=== PATIENT | female | born 1960 | race Caucasian/White ===

== ENCOUNTER 2016-12-20 01:01 | Emergency (ER) | payer MEDICARE ==
[~2016-12-20] VITALS: Ht 165.1 cm; Wt 90.9 kg
--- NOTE | ~2016-12-20 | CR72 ---
[facility] A Service of [facility] & [facility] RADIOLOGY TEXT RESULTS PATIENT: VERONICA ROSEN LOCATION: [facility] : 64 UNIT #: [id number] AGE: [address]: Cortney Fulton APRN SEX: F ORDER DR: [id number] [facility] [address] [place], [place] [address] [id number] E MR#: [id number] Acc #: [id number] NAME: VERONICA ROSEN. : 1960 SEX: F STUDY DATE/TIME: 12/20/2016 03:15 UNIT: [facility] ROOM: STUDY DESCRIPTION: CR Chest Single View Portable Attending Physician: Cortney Fulton A.P.R.N. Ordering Physician: Cortney Fulton A.P.R.N. Primary Care Physician: Frantz Meyers M.D. MEDICAL IMAGING REPORT This report is preliminary unless electronic signature is present EXAM Portable chest, 12/20 at 03:15. INDICATIONS Anxiety, cough, chest pain, headache and nausea that started last night at 8 o'clock. FINDINGS AP portable chest compared with 12/24/2015. Lung volumes are low but the lungs are clear. Cardiac and mediastinal contours are normal. No pneumothorax. Patient status post cervical fusion. IMPRESSION Low-volume inspiration, but no active disease. Dictated by... Nabil Rider Jr., M.D. THIS IS AN ELECTRONICALLY VERIFIED REPORT Nabil Rider Jr., M.D. at 12/20/2016 9:17 PM KACIE/amado TD: 12/20/2016 14:59 JOB #: [id number] MEDICAL IMAGING REPORT Page 1 of 1 COPY
--- NOTE | ~2016-12-20 | CT52 ---
[facility] A Service of [facility] RADIOLOGY TEXT RESULTS PATIENT: VERONICA ROSEN LOCATION: [facility] : 64 UNIT #: [id number] AGE: [address]: Cortney Fulton APRN SEX: F ORDER DR: [id number] [facility] [address] [place], [place] [address] [id number] E MR#: [id number] Acc #: [id number] NAME: VERONICA ROSEN. : 1960 SEX: F STUDY DATE/TIME: 12/20/2016 03:56 UNIT: [facility] ROOM: STUDY DESCRIPTION: CT Cervical Spine Wo Cont Attending Physician: Cortney Fulton A.P.R.N. Ordering Physician: Cortney Fulton A.P.R.N. Primary Care Physician: Frantz Meyers M.D. MEDICAL IMAGING REPORT This report is preliminary unless electronic signature is present EXAM Cervical spine CT, 12/20/2016, at 03:56. INDICATIONS Chronic neck pain worse tonight with headache and tingling in the arms. TECHNIQUE Axial images were obtained through the cervical spine without contrast. Multiplanar reformats were obtained. This CT exam was performed with one or more of the following radiation dose reduction techniques: automatic exposure control, adjustment of mA and/or kV according to patient size, and iterative reconstruction. COMPARISON No comparison. FINDINGS Cervical alignment is normal. Patient has fusion with anterior plate and screws at C5, C6 and C7. Patient is fused with posterior hardware at these levels as well. There is some streak artifact from the hardware. No fractures are seen. At C2-3, the disc is normal. There is some mild facet arthropathy. At C3-4, there is mild facet arthropathy. The disc is normal. At C4-5, the disc is normal. No central canal or neural foraminal stenosis identified at any level. IMPRESSION Cervical fusion as above. No fracture or subluxation. No significant central canal or neural foraminal narrowing identified at any level. [facility] A Service of [facility] RADIOLOGY TEXT RESULTS PATIENT: VERONICA ROSEN LOCATION: [facility] : 64 UNIT #: [id number] AGE: [address]: Cortney Fulton APRN SEX: F ORDER DR: Dictated by... Nabil Rider Jr., M.D. THIS IS AN ELECTRONICALLY VERIFIED REPORT Nabil Rider Jr., M.D. at 12/20/2016 9:18 PM KACIE/brayden TD: 12/20/2016 15:10 JOB #: [id number] MEDICAL IMAGING REPORT Page 1 of 1 COPY
--- NOTE | ~2016-12-20 | CT71 ---
[facility] A Service of [facility] RADIOLOGY TEXT RESULTS PATIENT: VERONICA ROSEN LOCATION: [facility] : 64 UNIT #: [id number] AGE: [address]: Cortney Fulton APRN SEX: F ORDER DR: [id number] [facility] [address] [place], [place] [address] [id number] E MR#: [id number] Acc #: [id number] NAME: VERONICA ROSEN. : 1960 SEX: F STUDY DATE/TIME: 12/20/2016 03:53 UNIT: [facility] ROOM: STUDY DESCRIPTION: CT Head Wo Contrast Attending Physician: Cortney Fulton A.P.R.N. Ordering Physician: Cortney Fulton A.P.R.N. Primary Care Physician: Frantz Meyers M.D. MEDICAL IMAGING REPORT This report is preliminary unless electronic signature is present EXAM Head CT, 12/20 at 3:53. INDICATIONS Headache with tingling in the arms and neck pain and anxiety that started today. TECHNIQUE Axial images were obtained from base to vertex without contrast. This CT exam was performed with one or more of the following radiation dose reduction techniques: Automatic exposure control, adjustment of mA and/or kV according to patient size, and iterative reconstruction. COMPARISON Comparison made with 11/10/2014. FINDINGS Ventricular size and configuration are within normal limits. No acute infarct or hemorrhage is seen. There are no masses. There is a mild degree of generalized atrophy. No skull fracture. There is mild bilateral sphenoid sinusitis. IMPRESSION Mild atrophy. The brain is otherwise within normal limits. There is mild bilateral sphenoid sinusitis. Dictated by... Nabil Rider Jr., M.D. THIS IS AN ELECTRONICALLY VERIFIED REPORT Nabil Rider Jr., M.D. at 12/20/2016 9:18 PM RLK/amado [facility] A Service of [facility] RADIOLOGY TEXT RESULTS PATIENT: VERONICA ROSEN [id number] : 64 UNIT #: [id number] AGE: [address]: Cortney Fulton APRN SEX: F ORDER DR: TD: 12/20/2016 15:04 JOB #: [id number] MEDICAL IMAGING REPORT Page 1 of 1 COPY
--- NOTE | ~2016-12-20 | EKG ---
PATIENT: VERONICA ROSEN UNIT #: [id number] Ventricular Rate: 86 BPM Atrial Rate: 86 BPM P-R Interval: 150 ms QRS Duration: 70 ms Q-T Interval: 374 ms QTC Calculation(Bezet): 447 ms P [place]: 70 degrees Calculated R [place]: 21 degrees Calculated T [place]: 63 degrees Diagnosis Line: Normal sinus rhythm Diagnosis Line: Septal infarct , age undetermined Diagnosis Line: Abnormal ECG Diagnosis Line: When compared with ECG of 20-DEC-2016 03:23, Diagnosis Line: (unconfirmed) Diagnosis Line: Previous ECG has undetermined rhythm, needs review Diagnosis Line: Confirmed by MILTON LEE MD ([id number]) on Diagnosis Line: 12/20/2016 8:43:24 AM INTERPRETING MD: ROSA BERMUDEZ
[~2016-12-20 01:01] MED LIST: ADIPEX-P37.5 M1 PO; ALPRAZOLAM PO; AMBIEN10 MG PO; CIPRO PO; DYAZIDE 37.5/251 CAP PO; DYAZIDE 371 CAP 37.5; DYAZIDE 371 CAP 37.5 PO; FAMOTIDINE PO; FIORICET 50-321 EACH PO; FIORICET1 TAB PO; FIORINAL CAPSUL1 CAP PO; FIORINAL/CODEIN1 CA1; FIORINAL/CODEIN1 CA1 PO; FLEXERIL PO; GABAPENTIN600 MG PO; GEODAN PO; GEODON80 MG PO; HYDROCODON-ACE1 EAC4 PO; HYDROCODONE-APA1 T30 PO; K-DUR20 ME1; K-DUR20 ME1 PO; KDUR PO; LEVOTHYROXINE50 MCG PO; LIPITOR20 MG PO; LORTAB 10/500 T1 TAB PO; MEVACOR PO; MS CONTIN15 M1 PO; OMEPRAZOLE40 M1 PO; PERCOCET 10/31 UDTA1 PO; PERCOCET 10/3251 TAB PO; PERCOCET5/325 PO; PHENERGAN PO; PHENERGAN PR; PHENERGAN12.5 MG PO; PHENERGAN12.5 MG/SU RC; PHENERGAN25 M1; PHENERGAN25 M1 PO; PHENERGAN25 M1 PR; PHENERGAN25 MG PO; PHENTERMINE H37.5 M1 PO; PHENTERMINE PO; POTASSIUM CHLO20 ME1 PO; PRILOSEC PO; SIMVASTATIN40 MG PO; TIZANIDINE HCL4 M1 PO; TRIAMTERENE-HC1 EACH PO; TRIAMTERENE/HCT1 TA3 PO; TRIAMTERENE/HCTZ PO; VICODIN PO; VITAMIN D2000 UNIT PO; VITAMIN D50000 UNIT PO; XANAX2 MG PO; ZANAFLEX4 M1 PO; ZOFRAN PO; ZOLOFT PO; ZOLOFT100 MG PO
[2016-12-20 03:59] LABS: URINE SOURCE CLEAN CATCH
[2016-12-20 04:03] LABS: POC - CKMB 2.8 ng/mL (0.0-7.9); POC - TROPONIN <0.05 ng/mL (<=0.05)
[2016-12-20 04:10] LABS: BASOPHIL# 0.1 X10e3 (0-0.3); BASOPHIL% 0.7 % (0-2.5); EOSINOPHIL# 0.2 X10e3 (0-0.7); EOSINOPHIL% 2.9 % (0.0-7.0); HEMATOCRIT 42.7 % (35.0-45.0); HEMOGLOBIN 14.7 gm/dL (12.0-16.0); LYMPHOCYTE# 3.4 X10e3 (1.0-3.5); LYMPHOCYTE% 40.5 % (17.0-45.0); MEAN CELL VOLUME 94.3 FL (83-96); MEAN CORPUSCULAR HEMOGLOBIN 32.6 PG (28-34); MEAN CORPUSCULAR HGB CONC 34.5 g/dL (30-36); MEAN PLATELET VOLUME 7.8 FL (6.5-11.5); MONOCYTE# 0.4 X10e3 (0-1.0); MONOCYTE% 5.1 % (3.0-12.0); NEUTROPHIL# 4.2 X10e3 (1.5-7.1); NEUTROPHIL% 50.8 % (40-75); PLATELET COUNT 300 X10e3 (140-420); RED BLOOD COUNT 4.53 X10e (3.90-5.30); RED CELL DISTRIBUTION WIDTH 14.3 % (11.0-15.5); URINE APPEARANCE CLEAR; URINE BILIRUBIN NEG (NEG); URINE BLOOD 1+ (NEG); URINE COLOR YELLOW; URINE GLUCOSE NEG (NEG); URINE KETONE NEG (NEG); URINE LEUKOCYTE ESTERASE 2+ (NEG); URINE NITRATE NEG (NEG); URINE PH 6.5 (5-8); URINE PROTEIN NEG (NEG); URINE UROBILINOGEN 0.2 MG/DL (NEG); WHITE BLOOD COUNT 8.3 X10e3 (4.0-10.5)
[2016-12-20 04:13] LABS: DIFF IND NO; URINE BACTERIA AUWI NEG (NEGATIVE); URINE SQUAMOUS EPITHELIAL CELL NONE SEEN /[HPF]
[2016-12-20 04:19] LABS: AMPHETAMINE NEG (NEG); BARBITURATES POS (NEG); BENZODIAZEPINES POS (NEG); COCAINE NEG (NEG); MARIJUANA NEG (NEG); OPIATES NEG (NEG); TRICYCLIC ANTIDEPRESSANTS NEG (NEG); U METHADONE NEG (NEG)
[2016-12-20 04:47] LABS: CULTURE INDICATED? NO
[2016-12-20 04:48] LABS: ALBUMIN SERUM 4.5 g/dL (3.5-5.0); BILIRUBIN, DIRECT 0.1 mg/dL (0.0-0.2); BILIRUBIN,INDIRECT 0.5 mg/dL (0.0-0.9); BILIRUBIN,TOTAL 0.6 mg/dL (0.2-2.0); CALCIUM SERUM 10.1 mg/dL (8.4-10.2); GLOM FILT RATE Estimated 63.8 mL/min (>60); POTASSIUM 3.4 mmol/L (3.5-5.1); PROTEIN TOTAL SERUM 7.7 g/dL (6.0-8.3)
== END 2016-12-20 05:54 | disposition home or self-care (01) ==
LOC: CED 01:01
PROVIDERS: Nurse Practitioner
DX: R51 Headache (principal); E78.5 Hyperlipidemia, unspecified; I10 Essential (primary) hypertension; F32.9 Major depressive disorder, single episode, unspecified; Z79.899 Other long term (current) drug therapy; Z88.8 Allergy status to other drugs, medicaments and biological substances
CPT/HCPCS: 36415; 70450; 71010; 72125; 80048; 80076; 80307; 81003; 82150; 82553; 83690; 84484; 85025; 93005; 96374; 96375; 99285; J1200; J1885; J2765